=== PATIENT | female | born 1995 | race Caucasian/White ===

== ENCOUNTER 2023-12-17 06:55 | Day surgery (SDC) | payer BC ==
[~2023-12-17 06:55] MED LIST: Midazolam 1 MG/ML 2 ML SDV ONE; fentaNYL 100 MCG/2 ML SDV ONE
[2023-12-17] MEDS: Dextrose 5%-0.45% NaCl 1,000 ML IV SCH (07:28)
[2023-12-17] MEDS: fentaNYL 100 MCG/2 ML SDV IV ONE ×2 (08:32→08:33)
[2023-12-17] MEDS: Midazolam 1 MG/ML 2 ML SDV IV ONE ×6 (08:33→08:41)
[2023-12-17 11:23] VITALS: BP 110/64; PULSE 77
== END 2023-12-17 10:06 | disposition home or self-care (01) ==
LOC: DL.ENDO 06:55
PROVIDERS: ATTEND Internal Medicine Gastroenterology
DX: K62.1 Rectal polyp (principal); K52.9 Noninfective gastroenteritis and colitis, unspecified; E06.3 Autoimmune thyroiditis; E66.01 Morbid (severe) obesity due to excess calories; Z68.43 Body mass index [BMI] 50.0-59.9, adult
CPT/HCPCS: J2250; J3010; J7799

== ENCOUNTER 2024-01-07 06:58 | Day surgery (SDC) | payer BC, MEDICAID ==
[2024-01-07] MEDS ORDERED: Lidocaine 2% 20 ML MDV NERVRT ONE (06:59)
[2024-01-07] MEDS ORDERED: Propofol 200 MG/20 ML SDV IV ONE (06:59)
[2024-01-07] MEDS ORDERED: Dextrose 5%-0.45% NaCl 1,000 ML IV SCH (07:00)
[2024-01-07] MEDS: Lactated Ringers 1,000 ML IV SCH (07:17)
[2024-01-07 08:59] VITALS: BP 114/80; PULSE 63
== END 2024-01-07 09:16 | disposition home or self-care (01) ==
LOC: DL.ENDO 06:58
PROVIDERS: ATTEND Internal Medicine Gastroenterology
DX: K29.50 Unspecified chronic gastritis without bleeding (principal); B96.81 Helicobacter pylori [H. pylori] as the cause of diseases classified elsewhere; F32.A Depression, unspecified; E66.01 Morbid (severe) obesity due to excess calories; Z68.43 Body mass index [BMI] 50.0-59.9, adult
CPT/HCPCS: 43239; 87077; J2704; J7120; J3490